=== PATIENT | male | born 1970 | race Hispanic/Latino ===

== ENCOUNTER 2016-08-17 08:05 | Inpatient (IN) | payer OTHER ==
[2016-08-17 08:24] VITALS: BMI 35.9
[2016-08-17] MEDS ORDERED: Morphine 4 mg/ml ISec IVP STA ×2 (08:28→11:25)
[2016-08-17 08:46] LABS: BASO # 0.03 K/mm3 (0.0-2.0); BASO % 0.3 % (0.0-3.0); EOS % 0.4 % (1.5-5.0); GRAN # 8.41 (1.4-6.5); GRAN % 79.4 % (50.0-68.0); HEMOGLOBIN 16.3 gm/dL (14.0-18.0); LYMPH # 1.6 (1.2-3.4); LYMPH % 14.6 % (22.0-35.0); MEAN CELL VOLUME 82.6 fL (80.0-105.0); MEAN CORPUSCULAR HEMOGLOBIN 29.2 pg (25.0-35.0); MEAN CORPUSCULAR HGB CONC 35.4 g/dl (31.0-37.0); MEAN PLATELET VOLUME 10.7 fl (7.0-11.0); MONO # 0.6 (0.1-0.6); MONO % 5.3 % (1.0-6.0); PLATELET COUNT 228 10^3/uL (120.0-450.0); RBC 5.58 10^6/uL (3.5-6.1); RED CELL DISTRIBUTION WIDTH 12.8 % (11.5-14.5); WHITE BLOOD COUNT 10.6 10^3/ul (4.5-11.0)
[2016-08-17 08:50] LABS: ALB/GLOB RATIO 1.4 (1.1-1.8); ALBUMIN 4.5 g/dL (3.0-4.8); ALT/SGPT 63 U/L (7-56); AST/SGOT 29 U/L (15-59); BLOOD UREA NITROGEN 16 mg/dL (7-21); CALCIUM 9.8 mg/dL (8.4-10.5); GFR AFRICAN-AMERICAN > 60; GFR NON-AFRICAN AMERICAN > 60
--- NOTE | 2016-08-17 09:31 | CT ---
PROCEDURE: CT Abdomen and Pelvis without intravenous or oral contrast HISTORY: left flank pain - h/o kidney stones COMPARISON: 08/26/2014. TECHNIQUE: Technique Contiguous axial images of the abdomen and pelvis without intravenous or oral contrast. Radiation dose: Total exam DLP = 1262.79 mGy-cm. This CT exam was performed using one or more of the following dose reduction techniques: Automated exposure control, adjustment of the mA and/or kV according to patient size, and/or use of iterative reconstruction technique. Contrast Dose: Unenhanced study. Neither oral nor intravenous contrast administered. FINDINGS: LOWER THORAX: Unremarkable. LIVER: Unremarkable. GALLBLADDER AND BILE DUCTS: Unremarkable. PANCREAS: Unremarkable. No ductal dilatation. SPLEEN: Unremarkable. No splenomegaly. ADRENALS: Left adrenal gland: Stable 1.5 cm well-circumscribed nodule mean Hounsfield units 11.5. Right adrenal gland: Unremarkable. KIDNEYS AND URETERS: Right kidney: Stable mass, 3 cm right kidney. Left kidney and collecting system: Edematous left kidney, perinephric stranding. The findings are secondary to a 2.5 mm calculus at the left ureterovesical junction. BLADDER: No intrinsic abnormalities. 2.5 mm calculus left ureterovesical junction. REPRODUCTIVE: Unremarkable. APPENDIX: Unremarkable. Normal appendix. STOMACH AND BOWEL: Unremarkable. No obstruction. No gross mural thickening. PERITONEUM: Unremarkable. No significant fluid collection. No free air. LYMPH NODES: Unremarkable. No enlarged lymph nodes. VASCULATURE: Unremarkable. No aortic aneurysm. BONES: No acute fracture. OTHER FINDINGS: None . IMPRESSION: Unilateral, left obstructive uropathy related to calculus at the left ureterovesical junction measuring 2.5 mm. No upper tract calculi identified. Additional benign and/or incidental findings described above. Otherwise unchanged compared to the prior study.
[2016-08-17 10:19] LABS: URINE BILIRUBIN NEGATIVE (NEGATIVE); URINE BLOOD SMALL (NEGATIVE); URINE GLUCOSE (UA) >=1000 mg/dL (NEGATIVE); URINE LEUKOCYTE ESTERASE NEGATIVE Leu/uL (NEGATIVE); URINE NITRATE NEGATIVE (NEGATIVE); URINE PROTEIN NEGATIVE mg/dL (<30 mg/dL); URINE UROBILINOGEN 0.2 E.U./dL (<1 E.U./dL)
[2016-08-17 10:25] LABS: URINE APPEARANCE CLEAR (CLEAR); URINE COLOR YELLOW (YELLOW)
[2016-08-17 10:32] LABS: URINE BACTERIA TRACE (NEG); URINE EPITHELIAL CELLS 0 - 2 /hpf (0-5); URINE WBC 0 - 2 /hpf (0-6)
[2016-08-17] MEDS ORDERED: Morphine 4 mg/ml ISec IVP PRN (11:31)
[2016-08-17] MEDS ORDERED: Morphine 4 mg/ml ISec ONE ×2 (13:46→15:17)
[2016-08-17] MEDS ORDERED: Morphine 4 mg/ml ISec IV ONE (14:15)
[2016-08-17] MEDS: Insulin Reg-MEDIUM-Coverage SC SCH (21:47)
[2016-08-17] MEDS: HYDROmorphone 1 mg/ml ISec IVP PRN (22:55)
[2016-08-18] MEDS: HYDROmorphone 1 mg/ml ISec IVP PRN ×3 (01:25→07:47)
[2016-08-18] MEDS ORDERED: HYDROmorphone 1 mg/ml ISec IVP STA (02:17)
[2016-08-18] MEDS: Sodium Chloride 0.9% 1,000 ML IV SCH ×4 (02:28→18:46)
[2016-08-18 06:10] LABS: MEAN CELL VOLUME 84.7 fL (80.0-105.0); MEAN CORPUSCULAR HEMOGLOBIN 29.1 pg (25.0-35.0); MEAN CORPUSCULAR HGB CONC 34.3 g/dl (31.0-37.0); MEAN PLATELET VOLUME 10.4 fl (7.0-11.0); RBC 5.16 10^6/uL (3.5-6.1); RED CELL DISTRIBUTION WIDTH 13.2 % (11.5-14.5); WHITE BLOOD COUNT 11.7 10^3/ul (4.5-11.0)
[2016-08-18 06:11] LABS: ALB/GLOB RATIO 1.3 (1.1-1.8); ALT/SGPT 51 U/L (7-56); AST/SGOT 20 U/L (15-59); BLOOD UREA NITROGEN 20 mg/dL (7-21); CALCIUM 8.9 mg/dL (8.4-10.5); GFR AFRICAN-AMERICAN > 60; GFR NON-AFRICAN AMERICAN > 60
[2016-08-18 07:36] VITALS: TEMP 98
[2016-08-18] MEDS: Insulin Reg-MEDIUM-Coverage SC SCH ×4 (07:52→22:35)
[2016-08-18] MEDS ORDERED: HYDROmorphone 1 mg/ml ISec IVP PRN (08:28)
--- NOTE | 2016-08-18 10:35 | CP.PCM.HP ---
History of Present Illness - History of Present Illness History of Present Illness: History Ff Present Illness: The patient is a 45 yo man with NIDDM and history of nephrolithiasis who presented to [facility] ED with a several day history of progressively worsening left flank pain. Initially the pain was dull in nature but over the course of several hours increased in intensity. It subsequently developed into a sharp, stabbing pain associated with nausea and vomiting. Given his history of renal calculi the patient opted for ED evaluation. Upon arrival to ED he was noted to be in moderate distress secondary to pain. A CT of abdomen and pelvis confirmed the left-sided renal calculus. Due to intractable pain and nausea the patient was admitted for continued management of nephrolithiasis. Past Medical History: As per HPI Past Surgical History: Operative debridement of left groin abscess Allergies: NKDA Medications: Metformin 1000mg PO BID Social History: He reports social EtOH but denies tobacco or illicit drug abuse Family History: Significant for DM and HTN Review Of Systems: A 14 point review of systems is negative except as per HPI Physical Examination: VS: T 98.7, P 80, BP 137/92, RR 18, O2 100% on RA Gen: moderate distress secondary to left flank pain HEENT: PERRL, EOMI, no scleral icterus, no conjunctival pallor Neck: supple with full ROM, no JVD Lungs: CTA CV: RRR, normal S1, S2 Abd: obese, NABS, soft, ND Back: (+) tenderness to percussion at left flank Ext: no edema Neuro: AAO x 3, no focal motor deficits Laboratory Data: Labs reviewed and largely unremarkable with the exception of mild leukocytosis Assessment: 45 yo man with NIDDM and history of nephrolithiasis who was admitted for acute management of refractory pain secondary to left-sided renal calculus Plan: 1. Renal calculus. c/w IVF hydration, c/w Dilaudid 2mg IV Q 2hr prn pain and Zofran prn nausea. Dr. Walden has been consulted for further evaluation and recommendations. 2. NIDDM. c/w Metformin 1gm PO BID, FS monitoring QACHS and medium dose ISS Code Status: Full Code Present on Admission - Present on Admission Any Indicators Present on Admission: Yes Past Patient History - Past Social History Smoking Status: Former Smoker - CARDIAC Hx Pacemaker: No - PULMONARY Hx Respiratory Disorders: No - NEUROLOGICAL Hx Paralysis: No - HEENT Hx HEENT Problems: No - RENAL Hx Chronic Kidney Disease: Yes Hx Kidney Stones: Yes - ENDOCRINE/METABOLIC Hx Endocrine Disorders: Yes Hx Diabetes Mellitus Type 1: Yes - HEMATOLOGICAL/ONCOLOGICAL Hx Blood Transfusions: No Hx Blood Transfusion Reaction: No - INTEGUMENTARY Hx Dermatological Problems: Yes (CELLULITIS TO RIGHT GROIN 07-03-13) - MUSCULOSKELETAL/RHEUMATOLOGICAL Hx Musculoskeletal Disorders: No - GASTROINTESTINAL Hx Gastrointestinal Disorders: Yes (RECTAL POLYP REMOVED,ESOPHAGITIS,GASTRITIS,H /O OF ABSCESS TO TAIL BONE.) - GENITOURINARY/GYNECOLOGICAL Hx Genitourinary Disorders: No - PSYCHIATRIC Hx Emotional Abuse: No Hx Physical Abuse: No Hx Substance Use: No - SURGICAL HISTORY Hx Surgeries: Yes (RECTAL POLYP REMOVED) - ANESTHESIA Hx Anesthesia: Yes Meds Allergies/Adverse Reactions: Allergies Allergy/AdvReac Type Severity Reaction Status Date / Time No Known Allergies Allergy Verified 08/17/16 08:18 Results - Vital Signs Recent Vital Signs: Last Vital Signs Temp 98 F 08/18/16 07:35 Pulse 85 08/18/16 07:35 Resp 18 08/18/16 07:35 BP 130/92 H 08/18/16 07:35 Pulse Ox 97 08/18/16 07:35 - Labs Result Diagrams: 08/18/16 05:50 08/18/16 05:50 Labs: Laboratory Results - last 24 hr 08/17/16 08/17/16 08/18/16 17:21 21:13 05:50 WBC 11.7 H RBC 5.16 Hgb 15.0 Hct 43.7 MCV 84.7 MCH 29.1 MCHC 34.3 RDW 13.2 Plt Count 215 MPV 10.4 Sodium Potassium Chloride Carbon Dioxide Anion Gap BUN Creatinine Est GFR ( Amer) Est GFR (Non-Af Amer) POC Glucose (mg/dL) 215 H 200 H Random Glucose Calcium Total Bilirubin AST ALT Alkaline Phosphatase Total Protein Albumin Globulin Albumin/Globulin Ratio 08/18/16 08/18/16 05:50 07:25 WBC RBC Hgb Hct MCV MCH MCHC RDW Plt Count MPV Sodium 140 Potassium 4.5 Chloride 104 Carbon Dioxide 28 Anion Gap 13 BUN 20 Creatinine 1.3 Est GFR ( Amer) > 60 Est GFR (Non-Af Amer) > 60 POC Glucose (mg/dL) 224 H Random Glucose 216 H Calcium 8.9 Total Bilirubin 0.7 AST 20 ALT 51 Alkaline Phosphatase 50 Total Protein 7.2 Albumin 4.0 Globulin 3.2 Albumin/Globulin Ratio 1.3
[2016-08-18] MEDS: HYDROmorphone 2 mg/ml ISec IVP PRN ×7 (10:52→23:54)
--- NOTE | 2016-08-18 11:24 | CARD ---
APPROVED REPORT EKG Measurement Heart [id number] <Conclusion> Poor data quality, interpretation may be adversely affected Normal sinus rhythm Normal ECG
[2016-08-18] MEDS ORDERED: cefTRIAXone 1 gm 1 GM/100 ML BAG IVPB STA (18:10)
[2016-08-18] MEDS: Dextrose 5%/0.9% NS 1,000 ML IV SCH (19:19)
[2016-08-19] MEDS: HYDROmorphone 2 mg/ml ISec IVP PRN ×6 (01:55→13:21)
[2016-08-19] MEDS: Dextrose 5%/0.9% NS 1,000 ML IV SCH (03:49)
[2016-08-19 08:26] LABS: HEMOGLOBIN 13.7 gm/dL (14.0-18.0); MEAN CORPUSCULAR HEMOGLOBIN 28.5 pg (25.0-35.0); MEAN PLATELET VOLUME 10.5 fl (7.0-11.0); RBC 4.8 10^6/uL (3.5-6.1); RED CELL DISTRIBUTION WIDTH 12.8 % (11.5-14.5); WHITE BLOOD COUNT 10.8 10^3/ul (4.5-11.0)
[2016-08-19 08:39] VITALS: BP 155/101; PULSE 93; RESP 20; O2SAT 94
[2016-08-19 09:02] LABS: ALB/GLOB RATIO 1.2 (1.1-1.8); ALBUMIN 3.6 g/dL (3.0-4.8); ALT/SGPT 41 U/L (7-56); AST/SGOT 19 U/L (15-59); BLOOD UREA NITROGEN 13 mg/dL (7-21); CALCIUM 8.6 mg/dL (8.4-10.5); GFR AFRICAN-AMERICAN > 60; GFR NON-AFRICAN AMERICAN > 60
[2016-08-19] MEDS: Insulin Reg-MEDIUM-Coverage SC SCH (09:03)
--- NOTE | 2016-08-19 09:28 | CP.PCM.PN ---
Subjective - Date & Time of Evaluation Date of Evaluation: 08/19/16 Time of Evaluation: 08:45 - Subjective Subjective: Subjective: Patient seen and examined at bedside on the [facility]. He reports continued left flank pain requiring Dilaudid every 2 hrs as ordered but does report improvement of pain with Dilaudid. He also reported 1 episode of hematuria but denied passage of clots. Otherwise he remains afebrile and clinically stable. Objective: VS: T 98, P 93, BP 155/101, RR 20, O2 saturation 94% on RA Gen: NAD HEENT: PERRL, EOMI, no scleral icterus, no conjunctival pallor Neck: no JVD, no bruits Lungs: CTA CV: RRR, normal S1, S2, no m/r/g Abd: obese, NABS, soft, NT, ND Back: (+) tenderness to percussion to left flank Ext: no edema Neuro: AAOx3, no focal motor deficits Laboratory Data: CBC reviewed and unremarkable, CMP reviewed and unremarkable Assessment: The patient is a 45 yo man with NIDDM and history of renal calculi who presented with a several day history of left-sided flank pain associated with nausea and vomiting and who was admitted for management of intractable pain and nauseas secondary to left renal calculus Plan: 1. Nephrolithiasis. Pain adequately controlled with Dilaudid. c/w current analgesic and antiemetic regimen. Input from Dr. Walden noted and greatly appreciated. As per my discussion with Dr. Walden, a stent may be pursued to alleviate pain symptoms however this morning the patient states he would like to opt for medical management as his symptoms are slowly starting to wane. 2. NIDDM. Continue with Metformin 1gm PO BID, medium dose insulin sliding scale and FS monitoring QACHS Code Status: Full Code Objective - Vital Signs/Intake and Output Vital Signs (last 24 hours): Temp Pulse Resp BP Pulse Ox 98 F 93 H 20 155/101 H 94 L 08/19/16 08:39 08/19/16 08:39 08/19/16 08:39 08/19/16 08:39 08/19/16 08:39 Intake and Output: 08/19/16 08/19/16 06:59 18:59 Intake Total 0 Output Total 500 725 Balance -500 -725 - Medications Medications: Current Medications Hydromorphone HCl (Dilaudid) 2 mg IVP Q2 PRN PRN Reason: Pain, severe (8-10) Last Admin: 08/19/16 09:04 Dose: 2 mg Dextrose/Sodium Chloride (Dextrose 5%/0.9% Ns 1000 Ml) 1,000 mls @ 100 mls/hr IV .Q10H [facility] Last Admin: 08/19/16 03:49 Dose: 100 mls/hr Insulin Human Regular (Humulin R Med) 0 units SC ACHS [facility] PRN Reason: Protocol Last Admin: 08/19/16 09:03 Dose: 3 units Metformin HCl (Glucophage) 1,000 mg PO BID [facility] Last Admin: 08/19/16 09:04 Dose: 1,000 mg Ondansetron HCl (Zofran Inj) 4 mg IVP Q4 PRN PRN Reason: Nausea/Vomiting Last Admin: 08/18/16 23:58 Dose: 4 mg Tamsulosin HCl (Flomax) 0.4 mg PO DAILY [facility] Last Admin: 08/19/16 09:04 Dose: 0.4 mg - Labs Labs: 08/19/16 08:15 08/19/16 08:15
--- NOTE | 2016-08-25 10:52 | CP.PCM.DIS ---
Provider - Provider Date of Admission: 08/18/16 10:25 Attending physician: Rambo Bunn MD Primary care physician: Rambo Bunn MD Consults: Dr. Walden (urology) Time Spent in preparation of Discharge (in minutes): 20 Diagnosis - Discharge Diagnosis (1) Nephrolithiasis Status: Acute Hospital Course - Lab Results Lab Results: Most Recent Lab Values WBC 10.8 10^3/ul (4.5-11.0) 08/19/16 08:15 RBC 4.80 10^6/uL (3.5-6.1) 08/19/16 08:15 Hgb 13.7 gm/dL (14.0-18.0) L 08/19/16 08:15 Hct 40.3 % (42.0-52.0) L 08/19/16 08:15 MCV 84.0 fL (80.0-105.0) 08/19/16 08:15 MCH 28.5 pg (25.0-35.0) 08/19/16 08:15 MCHC 34.0 g/dl (31.0-37.0) 08/19/16 08:15 RDW 12.8 % (11.5-14.5) 08/19/16 08:15 Plt Count 197 10^3/uL (120.0-450.0) 08/19/16 08:15 MPV 10.5 fl (7.0-11.0) 08/19/16 08:15 Gran % 79.4 % (50.0-68.0) H 08/17/16 08:30 Lymph % (Auto) 14.6 % (22.0-35.0) L 08/17/16 08:30 [place] % (Auto) 5.3 % (1.0-6.0) 08/17/16 08:30 Eos % (Auto) 0.4 % (1.5-5.0) L 08/17/16 08:30 Baso % (Auto) 0.3 % (0.0-3.0) 08/17/16 08:30 Gran # 8.41 (1.4-6.5) H 08/17/16 08:30 Lymph # 1.6 (1.2-3.4) 08/17/16 08:30 [place] # 0.6 (0.1-0.6) 08/17/16 08:30 Eos # 0.0 (0.0-0.7) 08/17/16 08:30 Baso # 0.03 K/mm3 (0.0-2.0) 08/17/16 08:30 Sodium 135 mmol/L (132-148) 08/19/16 08:15 Potassium 4.1 mmol/L (3.6-5.0) 08/19/16 08:15 Chloride 102 mmol/L (98-107) 08/19/16 08:15 Carbon Dioxide 24 mmol/L (21-33) 08/19/16 08:15 Anion Gap 13 (10-20) 08/19/16 08:15 BUN 13 mg/dL (7-21) 08/19/16 08:15 Creatinine 1.1 mg/dL (0.5-1.4) 08/19/16 08:15 Est GFR ( Amer) > 60 08/19/16 08:15 Est GFR (Non-Af Amer) > 60 08/19/16 08:15 POC Glucose (mg/dL) 184 mg/dL (65-110) H 08/19/16 11:00 Random Glucose 197 mg/dL (70-110) H 08/19/16 08:15 Calcium 8.6 mg/dL (8.4-10.5) 08/19/16 08:15 Total Bilirubin 0.5 mg/dL (0.2-1.3) 08/19/16 08:15 AST 19 U/L (15-59) 08/19/16 08:15 ALT 41 U/L (7-56) 08/19/16 08:15 Alkaline Phosphatase 47 U/L (38-133) 08/19/16 08:15 Total Protein 6.7 g/dL (5.8-8.3) 08/19/16 08:15 Albumin 3.6 g/dL (3.0-4.8) 08/19/16 08:15 Globulin 3.1 gm/dL 08/19/16 08:15 Albumin/Globulin Ratio 1.2 (1.1-1.8) 08/19/16 08:15 Urine Color Yellow (YELLOW) 08/17/16 10:11 Urine Appearance Clear (CLEAR) 08/17/16 10:11 Urine pH 6.0 (4.7-8.0) 08/17/16 10:11 Ur Specific [place] 1.020 (1.005-1.035) 08/17/16 10:11 Urine Protein Negative mg/dL (<30 mg/dL) 08/17/16 10:11 Urine Glucose (UA) >=1000 mg/dL (NEGATIVE) 08/17/16 10:11 Urine Ketones 15 mg/dL (NEGATIVE) H 08/17/16 10:11 Urine Blood Small (NEGATIVE) H 08/17/16 10:11 Urine Nitrate Negative (NEGATIVE) 08/17/16 10:11 Urine Bilirubin Negative (NEGATIVE) 08/17/16 10:11 Urine Urobilinogen 0.2 E.U./dL (<1 E.U./dL) 08/17/16 10:11 Ur Leukocyte Esterase Negative [place]/uL (NEGATIVE) 08/17/16 10:11 Urine RBC 2 - 5 /hpf (0-2) 08/17/16 10:11 Urine WBC 0 - 2 /hpf (0-6) 08/17/16 10:11 Ur Epithelial Cells 0 - 2 /hpf (0-5) 08/17/16 10:11 Urine Bacteria Trace (NEG) 08/17/16 10:11 - Hospital Course Hospital Course: The patient is a 45 yo man with NIDDM and prior nephrolithiasis who presented to [facility] with a several day history of severe left flank pain associated with malaise, nausea and vomiting. The patient denied fevers, chills , rigors, dysuria or hematuria associated with his symptoms. Given his history of recurrent renal calculi he opted for ED evaluation. Upon arrival to the ED he was found to have a 2mm left-sided renal calculus. Given his intractable pain and nausea he was admitted to the [facility] for continued management of nephrolithiasis. Over the following 36 hrs he had significant improvement in his discomfort. His nausea had resolved with Zofran and he was maintained on Dilaudid 2mg IV Q3 hrs prn pain. He was evaluated by Dr. Walden and given the small size and location of the stone it was advised to maintain IVF hydration and not to proceed with invasive urologic intervention. The patient was amenable to this plan and by the time of discharge he had resolution of his pain and was deemed stable for discharge to home. Discharge Plan - Follow Up Plan Condition: GOOD Disposition: HOME/ ROUTINE Instructions: Kidney Stones (DC) Additional Instructions: If you experience any worsening of pain, fever, chills, or chest pain please contact your doctor or return to the ER. Referrals: Jb Sainz MD [Staff Provider] - Rambo Bunn MD [Primary Care Provider] -
== END 2016-08-19 15:38 | disposition home or self-care (01) | DRG 694 ==
LOC: ED 08:05 → ERH 11:40 → 3RNO 20:16 → OBSVTOIN 08-18 10:25
PROVIDERS: ADMIT Internal Medicine; ATTEND Internal Medicine
DX: N20.1 Calculus of ureter (principal); E11.9 Type 2 diabetes mellitus without complications; Z79.84 Long term (current) use of oral hypoglycemic drugs; Z87.891 Personal history of nicotine dependence; Z83.3 Family history of diabetes mellitus; Z82.49 Family history of ischemic heart disease and other diseases of the circulatory system